=== PATIENT | male | born 1925 | race Caucasian/White ===

== ENCOUNTER → 2016-10-13 | Outpatient (CLI) | payer OTHER, BC ==
[~2016-10-13] MED LIST: ALBU1AER9 INH; ALFU10TA30 PO; APIX1TAB3 PO; CEPH500C2 PO; CYAN10005 PO; DOCU-94 PO; DONE10TA12 PO; DORZ1SOL OPR; DORZ2SOL20 OPR; ENAL10TA88 PO; FRS/40 PO; FURO80TA63 PO; LACT12CR18 TD; LCHC12280 TOP; MISCCAP80 PO; MULT-618 PO; POTA1CAP2 PO; PRLSR20 PO; PROAIR PO; TIMO0.05 OPR; TIMO0.2528 OPR
[2016-10-13 17:33] LABS: BASO % 0.4 %; BASO ABS # 0.02 K/uL (0-0.2); COMPLETE YES; EOS % 1.2 %; HEMATOCRIT 40.6 % (42-52); IG% 0.2 %; LYMPH % 39.2 %; LYMPH ABS # 2.04 K/uL (1.2-3.4); MEAN CELL VOLUME 104.9 fL (80-100); MEAN CORPUSCULAR HEMOGLOBIN 34.9 pg (25-34); MEAN CORPUSCULAR HGB CONC 33.3 g/dl (32-36); MEAN PLATELET VOLUME 11.8 fL (7.4-10.4); MONO % 10.8 %; NEUT % 48.2 %; PLATELET COUNT 122 K/uL (130-400); RED BLOOD COUNT 3.87 M/uL (4.7-6.1)
[2016-10-13 17:42] LABS: BLOOD UREA NITROGEN 29 mg/dl (7-18); CALCIUM 8.5 mg/dl (8.5-10.1); CARBON DIOXIDE 33 mmol/L (21-32); CHLORIDE 98 mmol/L (98-107); GLUCOSE 232 mg/dl (70-99); POTASSIUM 4.7 mmol/L (3.5-5.1); SODIUM 139 mmol/L (136-145)
[2016-10-14 06:28] LABS: ESTIMATED AVERAGE GLUCOSE 140 mg/dl; HA1C FLAG Normal (Normal)
== END | disposition home or self-care (01) ==
LOC: C.LABBFT 12:42
PROVIDERS: ATTEND Internal Medicine Hematology & Oncology
DX: D69.6 Thrombocytopenia, unspecified (principal); R73.01 Impaired fasting glucose

== ENCOUNTER → 2016-11-10 | Outpatient (CLI) | payer OTHER, BC ==
[2016-11-10 18:49] LABS: COMPLETE YES; EOSINOPHIL % 2.7 %; HEMATOCRIT 41.6 % (42-52); LYMPH ABS # 0.33 K/uL (1.2-3.4); LYMPHOCYTE % 6.3 %; MEAN CELL VOLUME 109.2 fL (80-100); MEAN CORPUSCULAR HEMOGLOBIN 34.9 pg (25-34); MEAN PLATELET VOLUME 12.4 fL (7.4-10.4); NEUTROPHILS % 56.1 %; OVALOCYTES 1+; PLATELET COUNT 104 K/uL (130-400); RED BLOOD COUNT 3.81 M/uL (4.7-6.1); VARIANT LYM ABS # 1.52 K/uL; VARIANT LYMPHOCYTE % 28.6 %
== END | disposition home or self-care (01) ==
LOC: C.LABBFT 11:21
PROVIDERS: ATTEND Internal Medicine Hematology & Oncology
DX: D69.6 Thrombocytopenia, unspecified (principal)

== ENCOUNTER 2016-11-17 13:53 | Inpatient (IN) | payer OTHER, BC ==
[~2016-11-17] VITALS: Ht 170.2 cm; Wt 79.0 kg
[~2016-11-17 13:53] MED LIST changes: -ALFU10TA30 PO; -CEPH500C2 PO; -CYAN10005 PO; -DOCU-94 PO; -DONE10TA12 PO; -DORZ2SOL20 OPR; -FRS/40 PO; -FURO80TA63 PO; -LCHC12280 TOP; -POTA1CAP2 PO; -PROAIR PO; -TIMO0.05 OPR
[2016-11-17 13:58] VITALS: TEMP 36.4
[2016-11-17] MEDS ORDERED: DOCU-94 PO (15:53)
[2016-11-17] MEDS ORDERED: DORZ2SOL20 OPR (15:53)
[2016-11-17] MEDS ORDERED: APIX1TAB3 PO (15:53)
[2016-11-17] MEDS ORDERED: PROAIR PO (15:53)
[2016-11-17] MEDS ORDERED: LCHC12280 TOP (15:53)
[2016-11-17] MEDS ORDERED: TIMO0.05 OPR (15:53)
[2016-11-17] MEDS ORDERED: POTA1CAP2 PO (15:53)
[2016-11-17] MEDS ORDERED: CEPH500C2 PO (16:11)
[2016-11-17] MEDS ORDERED: VANCOMYCIN 1GM/270ML NSS IV STA (16:13)
[2016-11-17] MEDS ORDERED: CEFTRIAXONE SOD INJ 1 GM ADDVIAL IV STA (16:13)
--- NOTE | 2016-11-17 16:18 | EMERGENCY ROOM VISIT NOTE ---
History Report prepared by Germania: Marcus Gonzalez Under the Supervision of: Dr. Getachew Davidson M.D. First contact with patient: 15:47 Chief Complaint: SWELLING TO EXTREMITY Stated Complaint: SWOLLEN ANKLE DOCTOR CALLED IN BEFOREHAND History of Present Illness The patient is an 89 year old male who presents to the Emergency Room with complaints of weeping right leg edema that started a couple days ago. Per the patient's , the patient was at [facility] earlier today, and was told to come here. They were concerned of the right leg getting increasingly red. The patient denies any abdominal pain. The patient's legs do swell occasionally however. The patient's notes that the patient had a broken hip , and developed a staph infection. The patient had to go back into the hospital and have it cleaned out. When he came home, he had a lot of leakage then as well. The patient is currently on Cephalexin daily, and he will be on it for the rest of his life. Ever since the hip issue, the patient has followed up with Dr. Epps of infectious disease. He had his Lasix dosage upped yesterday. The patient was on 8 mg every morning, but he was told to up his dose to 40 mg a day for 5 days. He started taking the 40 mg dose yesterday. Source of History: patient, spouse/significant other Onset: A couple days ago Position: leg (right) Quality: other (weeping leg edema) Timing: other (persistent) Associated Symptoms: No abdominal pain Note: Associated symptoms: Worsening right leg redness. No other associated symptoms noted. Review of Systems See HPI for pertinent positives & negatives. A total of 10 systems reviewed and were otherwise negative. Past Medical & Surgical Medical Problems: (1) Acute respiratory failure with hypoxemia (2) Aspiration pneumonia (3) Cellulitis of right lower extremity (4) Disorder Of Thyroid Nos (5) Esophageal Reflux (6) Hypertension Nos Family History Noncontributory due to advanced age Social History Smoking Status: Former Smoker Marital Status: Housing Status: lives with family Occupation Status: retired Current/Historical Medications Scheduled Alfuzosin Hcl (Uroxatral), 10 MG PO DAILYQPM Apixaban (Eliquis), 5 MG PO BID Cephalexin Monohydrate (Keflex), 500 MG PO BID Cyanocobalamin (Vitamin B-12), 1,000 MCG PO QAM Docusate Sodium (Colace), 1 CAP PO BID Donepezil Hydrochloride (Aricept), 10 MG PO QPM Dorzolamide Hcl-Timolol Maleat (Cosopt Oph), 1 DROPS OPR BID Furosemide (Lasix), 80 MG PO QAM Furosemide (Lasix), 40 MG PO QPM Multiple Vitamins W/ Minerals (Centrum Silver Ultra Mens), 1 TAB PO DAILY Omeprazole (Prilosec), 20 MG PO DAILY Potassium Chloride (Potassium Chloride Er), 10 MEQ PO TID Probiotic Product (Probiotic), 1 CAP PO BID Timolol Maleate (Ophth) (Timoptic 0.25% Oph), 1 DROP OPR BID [Proair], 2 PUFF PO QID Scheduled PRN Lactic Acid (Ammonium Lactate Cream 12%), 1 APPLN TOP BID PRN for affected area Allergies Coded Allergies: No Known Allergies (Unverified , 01/03/15) Physical Exam Vital Signs Date Time Temp Pulse Resp B/P Pulse Ox O2 Delivery O2 Flow Rate FiO2 11/17/16 20:07 50 21 89/60 96 Nasal Cannula 3.0 11/17/16 18:35 51 18 88/49 97 Nasal Cannula 3.0 11/17/16 18:20 52 11/17/16 17:44 52 20 107/54 94 Nasal Cannula 3.0 11/17/16 16:25 84 Room Air 11/17/16 16:25 97 Nasal Cannula 4.0 11/17/16 16:09 51 26 97 Nasal Cannula 4.0 11/17/16 16:00 55 28 106/72 84 Room Air 11/17/16 13:58 36.4 82 16 116/70 94 Room Air Physical Exam GENERAL: Patient is a healthy-appearing well-nourished HEAD: Normocephalic atraumatic EYES: Ocular movements intact pupils equal and react to light OROPHARYNX mucous membranes are moist no exudates present no erythema or edema present NECK: Supple no nuchal rigidity CHEST: Good equal expansion LUNGS: Clear and equal to auscultation CARDIAC: Normal S1 and S2 ABDOMEN: Soft nontender no guarding BACK: No CVA tenderness EXTREMITIES: Quarter sized weeping ulcer to posterior tibial area. NEURO: Patient is following commands is answering questions appropriately. Alert and oriented x3 Cranial Nerves 2-12 grossly intact Medical Decision & Procedures ER Provider Diagnostic Interpretation: Radiology results as stated below per my review and radiologist interpretation: ULTRASOUND VENOUS DOPPLER ULTRASOUND OF THE RIGHT LOWER EXTREMITY CLINICAL HISTORY: Right leg swelling COMPARISON STUDY: No previous studies for comparison. FINDINGS: Real-time and color flow Doppler imaging were performed. Flow was seen within the femoral, popliteal and calf veins with no intraluminal thrombus demonstrated. The saphenous vein is patent. There is right calf edema which limits evaluation the calf vessels. IMPRESSION: No evidence of right lower extremity DVT. Electronically signed by: Vasquez Owen M.D. 11/17/2016 5:44 PM Dictated Date/Time: 11/17/2016 5:43 PM CHEST ONE VIEW PORTABLE CLINICAL HISTORY: Atypical chest pain COMPARISON STUDY: 08/30/2016 FINDINGS: The heart is mildly enlarged. There is mild prominence of central pulmonary vasculature without evidence of overt failure. There are no pleural effusions. There is no lobar consolidation.[ IMPRESSION: Cardiomegaly. Mild central vascular prominence without evidence of overt failure. No evidence of focal pulmonary consolidation Electronically signed by: Vasquez Owen M.D. 11/17/2016 4:32 PM Dictated Date/Time: 11/17/2016 4:31 PM Laboratory Results 11/17/16 16:27 Red Blood Count 3.83, Mean Corpuscular Volume 108.6, Mean Corpuscular Hemoglobin 35.5, Mean Corpuscular Hemoglobin Concent 32.7, Mean Platelet Volume 11.9, Neutrophils (%) (Auto) 47.8, Lymphocytes (%) (Auto) 37.0, Monocytes (%) ( Auto) 13.5, Eosinophils (%) (Auto) 1.1, Basophils (%) (Auto) 0.2, Neutrophils # (Auto) 2.62, Lymphocytes # (Auto) 2.03, Monocytes # (Auto) 0.74, Eosinophils # ( Auto) 0.06, Basophils # (Auto) 0.01 11/17/16 16:27 Test 11/17/16 16:27 White Blood Count 5.48 K/uL (4.8-10.8) Red Blood Count 3.83 M/uL (4.7-6.1) Hemoglobin 13.6 g/dL (14.0-18.0) Hematocrit 41.6 % (42-52) Mean Corpuscular Volume 108.6 fL (80-100) Mean Corpuscular Hemoglobin 35.5 pg (25-34) Mean Corpuscular Hemoglobin Concent 32.7 g/dl (32-36) Platelet Count 90 K/uL (130-400) Mean Platelet Volume 11.9 fL (7.4-10.4) Neutrophils (%) (Auto) 47.8 % Lymphocytes (%) (Auto) 37.0 % Monocytes (%) (Auto) 13.5 % Eosinophils (%) (Auto) 1.1 % Basophils (%) (Auto) 0.2 % Neutrophils # (Auto) 2.62 K/uL (1.4-6.5) Lymphocytes # (Auto) 2.03 K/uL (1.2-3.4) Monocytes # (Auto) 0.74 K/uL (0.11-0.59) Eosinophils # (Auto) 0.06 K/uL (0-0.5) Basophils # (Auto) 0.01 K/uL (0-0.2) RDW Standard Deviation 52.5 fL (36.4-46.3) RDW Coefficient of Variation 13.3 % (11.5-14.5) Immature Granulocyte % (Auto) 0.4 % Immature Granulocyte # (Auto) 0.02 K/uL (0.00-0.02) Anion Gap 6.0 mmol/L (3-11) Est Creatinine Clear Calc Drug Dose 36.0 ml/min Estimated GFR () 56.1 Estimated GFR (Non- 48.4 BUN/Creatinine Ratio 28.3 (10-20) Calcium Level 8.8 mg/dl (8.5-10.1) Total Bilirubin 1.4 mg/dl (0.2-1) Direct Bilirubin 0.5 mg/dl (0-0.2) Aspartate Amino Transf (AST/SGOT) 25 U/L (15-37) Alanine Aminotransferase (ALT/SGPT) 19 U/L (12-78) Alkaline Phosphatase 89 U/L (45-117) Total Creatine Kinase 123 U/L (39-308) Creatine Kinase MB 2.5 ng/ml (0.5-3.6) Creatine Kinase MB Ratio 2.0 (0-3.0) Troponin I < 0.015 ng/ml (0-0.045) Pro-B-Type Natriuretic Peptide 3697 pg/ml (0-1800) Total Protein 7.0 gm/dl (6.4-8.2) Albumin 3.2 gm/dl (3.4-5.0) Lipase 82 U/L (73-393) Labs reviewed by ED physician. Medications Administered Medications (Trade) Dose Ordered Sig/Herbert Route Start Time Stop Time Status Last Admin Dose Admin Ceftriaxone Sodium (Rocephin Inj) 1 gm NOW STAT IV 11/17/16 16:13 11/17/16 16:14 DC 11/17/16 16:59 1 GM Vancomycin HCl (Vancomycin 1gm/ 270ml Nss) 1 gm NOW STAT IV 11/17/16 16:13 11/17/16 16:14 DC 11/17/16 17:43 1 GM ECG Indication: other (swelling to extremity) Rate (beats per minute): 57 Rhythm: atrial fibrillation Findings: no acute ischemic change, no ectopy ED Course 1554: Past medical records reviewed. The patient was evaluated in room B7. A complete history and physical examination was performed. 1613: Ordered Vancomycin 1 gm/270 ml NSS 1 gm IV, Rocephin Inj 1 gm IV. 1840: Upon reexamination the patient is resting comfortably. I discussed results and treatment plan with the patient. He verbalizes agreement and understanding. The patient will be evaluated for further management. 1899: I discussed the patient with Dr. Ludmila jurado - he will evaluate the patient for further treatment. Medical Decision Differential diagnosis: Etiologies such as cellulitis, abscess, MRSA infection, DVT, necrotizing fasciitis, dermatitis, drug eruption, as well as others were entertained. This is an 89-year-old male who presents emergency department complaining of weeping wound as well as right lower extremity cellulitis. The patient was sent in by his primary care physician's office and the patient is Jules on Keflex at home however the cellulitis became much worse today. Ultrasound does not show any evidence of a DVT. He has a normal CBC. Based on the findings I did discuss the case with the hospitalist service who agreed to admit the patient. Patient was in agreement with the treatment plan. Consults Time Called: 1839 Consulting Physician: Dr. Ludmila TANG hospitalist Returned Call: [phone] I discussed the patient with Dr. Ludmila TANG hospitalist - he will evaluate the patient for further treatment. Impression Primary Impression: Cellulitis of right lower extremity Scribe Attestation The scribe's documentation has been prepared under my direction and personally reviewed by me in its entirety. I confirm that the note above accurately reflects all work, treatment, procedures, and medical decision making performed by me. Departure Information Dispostion Being Evaluated By Hospitalist Referrals Joshua Rojas M.D. (PCP) Patient Instructions My [facility]
--- NOTE | 2016-11-17 16:33 | DIAGNOSTIC IMAGING REPORT ---
CHEST ONE VIEW PORTABLE CLINICAL HISTORY: Atypical chest pain COMPARISON STUDY: 08/30/2016 FINDINGS: The heart is mildly enlarged. There is mild prominence of central pulmonary vasculature without evidence of overt failure. There are no pleural effusions. There is no lobar consolidation.[ IMPRESSION: Cardiomegaly. Mild central vascular prominence without evidence of overt failure. No evidence of focal pulmonary consolidation Electronically signed by: Vasquez Owen M.D. 11/17/2016 4:32 PM Dictated Date/Time: 11/17/2016 4:31 PM
[2016-11-17 16:48] LABS: HEMATOCRIT 41.6 % (42-52); MEAN CELL VOLUME 108.6 fL (80-100); MEAN CORPUSCULAR HEMOGLOBIN 35.5 pg (25-34); MEAN CORPUSCULAR HGB CONC 32.7 g/dl (32-36); RED BLOOD COUNT 3.83 M/uL (4.7-6.1); WHITE BLOOD COUNT 5.48 K/uL (4.8-10.8)
[2016-11-17 16:49] LABS: BASO % 0.2 %; BASO ABS # 0.01 K/uL (0-0.2); COMPLETE YES; EOS % 1.1 %; IG% 0.4 %; LYMPH ABS # 2.03 K/uL (1.2-3.4); MEAN PLATELET VOLUME 11.9 fL (7.4-10.4); MONO % 13.5 %; NEUT % 47.8 %; PLATELET COUNT 90 K/uL (130-400)
[2016-11-17 17:08] LABS: ALT/SGPT 19 U/L (12-78); AST/SGOT 25 U/L (15-37); BLOOD UREA NITROGEN 37 mg/dl (7-18); BUN/CREATININE RATIO 28.3 (10-20); CALCIUM 8.8 mg/dl (8.5-10.1); CARBON DIOXIDE 37 mmol/L (21-32); CHLORIDE 97 mmol/L (98-107); GLUCOSE 128 mg/dl (70-99); POTASSIUM 4.7 mmol/L (3.5-5.1); SODIUM 140 mmol/L (136-145)
[2016-11-17 17:16] LABS: ALKALINE PHOSPHATASE 89 U/L (45-117)
--- NOTE | 2016-11-17 17:45 | DIAGNOSTIC IMAGING REPORT ---
ULTRASOUND VENOUS DOPPLER ULTRASOUND OF THE RIGHT LOWER EXTREMITY CLINICAL HISTORY: Right leg swelling COMPARISON STUDY: No previous studies for comparison. FINDINGS: Real-time and color flow Doppler imaging were performed. Flow was seen within the femoral, popliteal and calf veins with no intraluminal thrombus demonstrated. The saphenous vein is patent. There is right calf edema which limits evaluation the calf vessels. IMPRESSION: No evidence of right lower extremity DVT. Electronically signed by: Vasquez Owen M.D. 11/17/2016 5:44 PM Dictated Date/Time: 11/17/2016 5:43 PM
[2016-11-17] MEDS ORDERED: ACETAMINOPHEN 325 MG TAB PO PRN (19:45)
[2016-11-17] MEDS ORDERED: ENOXAPARIN 40 MG/0.4 ML SYR SQ SCH (19:45)
[2016-11-17] MEDS ORDERED: POLYETHYLENE (MIRALAX) 17 GM PACK PO PRN (19:45)
[2016-11-17] MEDS ORDERED: MAGNESIUM HYDROXIDE SUSP 30 ML UDC PO PRN (19:45)
[2016-11-17] MEDS ORDERED: ALUMINUM/MAGNESIUM/SIMETH (MAALOX MAX) 30 ML UDC PO PRN (19:45)
[2016-11-17] MEDS ORDERED: ONDANSETRON INJ 2 MG/ML 2 ML VIAL IV PRN (19:45)
--- NOTE | 2016-11-17 19:54 | History and Physical ---
History & Physical Date & Time of Service: Nov 17, 2016 at 19:53 Chief Complaint: Swollen Ankle Doctor Called In Beforehand Primary Care Physician: Joshua Rojas M.D. 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 Epps (Infectious Disease) on lifelong Cephalexin 500 mg twice a day. 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 History is per due to baseline dementia. Per patient's , 2 days ago, noticed increased right lower extremity swelling. PCP was contacted and increased lasix from 80mg per day to 120mg per day for 5 days. By Monday afternoon, RLE became progressively more red and began weeping. Patient was then taken to [facility] where it was recommended going to ED to rule out DVT. According to , patient had been taking cephalexin as prescribed. no fevers, chills, no calf pain, no n/v, abdominal pain, change in stool, urinary symptoms, In the ED, patient was stable with normal WCC, negative Lower extremity Doppler U/S Past Medical/Surgical History Chronic diastolic CHF Alzheimer's Disease/GERD HTN Afib BPH GERD Family History Noncontributory due to advanced age Social History Smoking Status: Former Smoker Marital Status: Housing status: lives with family Occupational Status: retired Immunizations History of Influenza Vaccine: Yes History of Tetanus Vaccine?: Unknown History of Pneumococcal: Yes Pneumococcal Date: May 28, 2010 History of Hepatitis B Vaccine: Unknown Allergies Coded Allergies: No Known Allergies (Unverified , 01/03/15) Home Medications Scheduled Alfuzosin Hcl (Uroxatral), 10 MG PO DAILYQPM Apixaban (Eliquis), 5 MG PO BID Cephalexin Monohydrate (Keflex), 500 MG PO BID Cyanocobalamin (Vitamin B-12), 1,000 MCG PO QAM Docusate Sodium (Colace), 1 CAP PO BID Donepezil Hydrochloride (Aricept), 10 MG PO QPM Dorzolamide Hcl-Timolol Maleat (Cosopt Oph), 1 DROPS OPR BID Furosemide (Lasix), 80 MG PO QAM Furosemide (Lasix), 40 MG PO QPM Multiple Vitamins W/ Minerals (Centrum Silver Ultra Mens), 1 TAB PO DAILY Omeprazole (Prilosec), 20 MG PO DAILY Potassium Chloride (Potassium Chloride Er), 10 MEQ PO TID Probiotic Product (Probiotic), 1 CAP PO BID Timolol Maleate (Ophth) (Timoptic 0.25% Oph), 1 DROP OPR BID [Proair], 2 PUFF PO QID Scheduled PRN Lactic Acid (Ammonium Lactate Cream 12%), 1 APPLN TOP BID PRN for affected area Review of Systems Constitutional: No chills, No fatigue, No fever Respiratory: No cough, No shortness of breath, No wheezing Cardiovascular: + edema, No chest pain, No palpitations Abdomen: No diarrhea, No nausea, No pain, No vomiting Genitourinary - Male: No dysuria, No hematuria, No urinary frequency, No urinary urgency Integumentary: + problem reported (RLE redness, swelling) Physical Exam Vital Signs Date Time Temp Pulse Resp B/P Pulse Ox O2 Delivery O2 Flow Rate FiO2 11/17/16 18:35 51 18 88/49 97 Nasal Cannula 3.0 11/17/16 18:20 52 11/17/16 17:44 52 20 107/54 94 Nasal Cannula 3.0 11/17/16 16:25 84 Room Air 11/17/16 16:25 97 Nasal Cannula 4.0 11/17/16 16:09 51 26 97 Nasal Cannula 4.0 11/17/16 16:00 55 28 106/72 84 Room Air 11/17/16 13:58 36.4 82 16 116/70 94 Room Air General Appearance: WD/WN, no apparent distress Head: normocephalic, atraumatic Eyes: PERRL, EOMI, sclerae normal Neck: supple, no carotid bruits, trachea midline Respiratory/Chest: lungs clear, normal breath sounds, no respiratory distress Cardiovascular: regular rate, rhythm, no JVD, no murmur, + pertinent finding (2 + pittingedema nata) Abdomen/GI: normal bowel sounds, non tender, soft Extremities/Musculoskelatal: no calf tenderness, + pedal edema, + swelling, + pertinent finding (RLE erythema, RLE 1.5 cm ulcer) Neurologic/Psych: alert, normal mood/affect, + pertinent finding (oriented to person, place ONLY) Diagnostics Laboratory Results Results Past 24 Hours Test 11/17/16 16:27 Range/Units White Blood Count 5.48 4.8-10.8 K/uL Red Blood Count 3.83 4.7-6.1 M/uL Hemoglobin 13.6 14.0-18.0 g/dL Hematocrit 41.6 42-52 % Mean Corpuscular Volume 108.6 80-100 fL Mean Corpuscular Hemoglobin 35.5 25-34 pg Mean Corpuscular Hemoglobin Concent 32.7 32-36 g/dl Platelet Count 90 130-400 K/uL Mean Platelet Volume 11.9 7.4-10.4 fL Neutrophils (%) (Auto) 47.8 % Lymphocytes (%) (Auto) 37.0 % Monocytes (%) (Auto) 13.5 % Eosinophils (%) (Auto) 1.1 % Basophils (%) (Auto) 0.2 % Neutrophils # (Auto) 2.62 1.4-6.5 K/uL Lymphocytes # (Auto) 2.03 1.2-3.4 K/uL Monocytes # (Auto) 0.74 0.11-0.59 K/uL Eosinophils # (Auto) 0.06 0-0.5 K/uL Basophils # (Auto) 0.01 0-0.2 K/uL RDW Standard Deviation 52.5 36.4-46.3 fL RDW Coefficient of Variation 13.3 11.5-14.5 % Immature Granulocyte % (Auto) 0.4 % Immature Granulocyte # (Auto) 0.02 0.00-0.02 K/uL Sodium Level 140 136-145 mmol/L Potassium Level 4.7 3.5-5.1 mmol/L Chloride Level 97 98-107 mmol/L Carbon Dioxide Level 37 21-32 mmol/L Anion Gap 6.0 3-11 mmol/L Blood Urea Nitrogen 37 7-18 mg/dl Creatinine 1.30 0.60-1.40 mg/dl Est Creatinine Clear Calc Drug Dose 36.0 ml/min Estimated GFR () 56.1 Estimated GFR (Non- 48.4 BUN/Creatinine Ratio 28.3 10-20 Random Glucose 128 70-99 mg/dl Calcium Level 8.8 8.5-10.1 mg/dl Total Bilirubin 1.4 0.2-1 mg/dl Direct Bilirubin 0.5 0-0.2 mg/dl Aspartate Amino Transf (AST/SGOT) 25 15-37 U/L Alanine Aminotransferase (ALT/SGPT) 19 12-78 U/L Alkaline Phosphatase 89 45-117 U/L Total Creatine Kinase 123 39-308 U/L Creatine Kinase MB 2.5 0.5-3.6 ng/ml Creatine Kinase MB Ratio 2.0 0-3.0 Troponin I < 0.015 0-0.045 ng/ml Pro-B-Type Natriuretic Peptide 3697 0-1800 pg/ml Total Protein 7.0 6.4-8.2 gm/dl Albumin 3.2 3.4-5.0 gm/dl Lipase 82 73-393 U/L Microbiology Results 11/17/16 Blood Culture, Received Pending 11/17/16 Blood Culture, Received Pending Diagnostic Radiology CHEST ONE VIEW PORTABLE CLINICAL HISTORY: Atypical chest pain COMPARISON STUDY: 08/30/2016 FINDINGS: The heart is mildly enlarged. There is mild prominence of central pulmonary vasculature without evidence of overt failure. There are no pleural effusions. There is no lobar consolidation.[ IMPRESSION: Cardiomegaly. Mild central vascular prominence without evidence of overt failure. No evidence of focal pulmonary consolidation ULTRASOUND VENOUS DOPPLER ULTRASOUND OF THE RIGHT LOWER EXTREMITY CLINICAL HISTORY: Right leg swelling COMPARISON STUDY: No previous studies for comparison. FINDINGS: Real-time and color flow Doppler imaging were performed. Flow was seen within the femoral, popliteal and calf veins with no intraluminal thrombus demonstrated. The saphenous vein is patent. There is right calf edema which limits evaluation the calf vessels. IMPRESSION: No evidence of right lower extremity DVT. 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, on lifelong Cephalexin 500 mg twice a day and hx of Chronic Diastolic CHF complicated by Nata LE Edema on lasix, p/w progressive RLE erythema/edema, currently afebrile, stable, normal WCC, negative LE doppler U/S RLE erythema -edematous, erythematous, warm to touch -RLE Cellulitis refractory to Cephalexin at home -MSSA isolated in a previous admission, no hx of MRSA -Kelfex 500 mg BID at home lifelong for hx of infected rt hip prosthesis -Keflex held -Start Vancomycin, Clindamycin -Start Probiotic -F/u Blood cx's Chronic Diastolic CHF, Nata LE Edema -LAst Echo 12/2014: -LV Sys fxn ; EF 60-65%, mild aortic regurg, mod, to severe mitral regurg -CXR 11/17/16: Cardiomegaly. Mild central vascular prominence without evidence ofovert failure. -Pro-BNP BNP 3697 -Restart home dose Lasix, 40 Qpm, 80 Qam -Continue to monitor Afib restart Eliquis GERD -Restart Omeprazole Alzheimer's Disease -restart Donepezil BPH -Restart Uroxatral DVT prophylaxis: already on Eliquis Resident Physician Supervision Note: Pt seen examined independently. Discussed w/family, discussed the case with the resident and agree with the findings and plan as documented in the note. Any exceptions or clarifications are listed here 89 y/o M who suffers from dementia and CHF - on life-long antibiotics following a prosthetic hip infection. Pt brought in by family due to RLE cellulitis - could not contribute to HPI and had no specific complaints OE AAO x 1 S1,2 irreg CTA - poor effort Ext - extensive cellulitis and edema - above R ankle to below knee P: Started on Vanc and Clinda Cont Lasix for edema - local wound care Pt is on Eliquis for AF Documented By: Cornel Keys Chronic diastolic CHF Alzheimer's Disease/GERD HTN Afib BPH GERD Level of Care Med/Surg Resuscitation Status DO NOT RESUSCITATE VTE Prophylaxis VTE Risk Assessment Done? Y/N: Yes Risk Level: Moderate Given or contraindicated: Enoxaparin (Lovenox)SQ Social Service Consult None Apply Resident Tracking Resident Involvement: Resident Care Provided Care Provided: Adult Hospital Medicine
[2016-11-17] MEDS ORDERED: VANCOMYCIN CONSULT ACTIVE PRN (20:00)
[2016-11-17] MEDS ORDERED: VANCOMYCIN INJ 1,000 MG in SODIUM CHLORIDE 0.9% 250ML 250 ML IV SCH (20:00)
[2016-11-17 20:11] VITALS: O2SAT 96; Ht 170.2 cm; Wt 79.0 kg
[2016-11-17 20:18] LABS: INR 1.1 (0.9-1.1); PARTIAL THROMBOPLASTIN RATIO 1.3; PROTHROMBIN TIME (PATIENT) 11.8 SECONDS (9.0-12.0)
[2016-11-17] MEDS ORDERED: APIXABAN 2.5 MG TAB PO SCH (21:00)
[2016-11-17] MEDS ORDERED: DONEPEZIL HCL 10 MG TAB PO SCH (21:00)
[2016-11-17] MEDS ORDERED: DORZOLAMIDE/TIMOLOL 22.3/6.8MG/ML 10 ML BTL OPR SCH (21:00)
[2016-11-17] MEDS ORDERED: FUROSEMIDE 40 MG TAB PO SCH (21:00)
[2016-11-17] MEDS ORDERED: LACTOBACILLUS ACIDOPHILUS (FLORANEX) TAB PO SCH (21:00)
[2016-11-17] MEDS ORDERED: ALFU10TA30 PO (21:21)
[2016-11-17] MEDS ORDERED: DONE10TA12 PO (21:23)
[2016-11-17] MEDS ORDERED: FURO80TA63 PO (21:28)
[2016-11-17] MEDS ORDERED: FRS/40 PO (21:30)
[2016-11-17] MEDS ORDERED: CYAN10005 PO (21:33)
[2016-11-17] MEDS ORDERED: CLINDAMYCIN IV 600 MG in DEXTROSE 5% ADD-VANTAGE 50ML 50 ML IV SCH (23:00)
[2016-11-17 23:01] VITALS: BP 100/68; PULSE 49; O2SAT 98
[2016-11-18] VITALS: O2SAT 98
--- NOTE | 2016-11-18 02:41 | Death Pronouncement Note ---
Pronouncement Note Date & Time of Nov 18, 2016. 2:10am Pronouncement At time of pronouncement the patients pupils were fixed and dilated, there was no spontaneous respiratory effort, no palpable pulse, no audible heart tones, and no response to pain or voice.
--- NOTE | 2016-11-18 02:57 | Progress Note ---
Progress Note Date of Service Nov 18, 2016. Progress Note Please refer to nursing staff notes for events leading up to code purple. Code lauren called at 2:08am 11/18/16. Patient was elevated in bed with oxygen mask on, appeared obtunded. A: one agonal breath when I first entered the room but otherwise not breathing effort B: as above C: no radial or carotid pulse felt, patient placed on monitor and determined to have pulseless electrical activity. He is not for resuscitation therefore no efforts were started in this regard. Time of called at 2:10am. Resident Tracking Resident Involvement: Resident Care Provided Care Provided: Adult Hospital Medicine
[2016-11-18] MEDS ORDERED: FUROSEMIDE 80 MG TAB PO SCH (08:00)
[2016-11-18] MEDS ORDERED: ALFUZosin TAB 10 MG TAB PO SCH (08:00)
--- NOTE | 2016-11-18 08:10 | Death Summary ---
Summary of Admission Date Nov 17, 2016 at 19:53 Date & Time of Nov 18, 2016. 2:10am Cause of Hypoxia secondary to aspiration Secondary Diagnoses Altered mental status Cellulitis Chronic diastolic heart failure Hospital Course Mr Guo was admitted with increasing leg swelling and cellulitis. He was called as a code purple after oxygen saturations acutely dropped. When I arrived he had one agonal breath and then no respiratory effort. No carotid pulse or heart sounds were present and he had pulseless electrical activity on the monitor. He was not for resuscitation to no efforts were made in this regard. He was pronounced at 2:10am on November 18 2016. Copy To Joshua Rojas M.D. Resident Tracking Resident Involvement: Resident Care Provided Care Provided: Adult Hospital Medicine
[2016-11-18] MEDS ORDERED: VANCOMYCIN INJ 1,200 MG in SODIUM CHLORIDE 0.9% 250ML 250 ML IV SCH (20:00)
[2016-11-20] MEDS ORDERED: VANCOMYCIN TROUGH SCH (19:30)
== END 2016-11-18 02:10 | disposition expired | DRG 178 ==
LOC: ENRESERVTM → ENRESERVDT → C.EDB 13:55 → C.4E 19:53
PROVIDERS: ADMIT Internal Medicine; ATTEND Internal Medicine
DX: J69.0 Pneumonitis due to inhalation of food and vomit (principal); I50.32 Chronic diastolic (congestive) heart failure; L03.115 Cellulitis of right lower limb; R09.02 Hypoxemia; G30.9 Alzheimer's disease, unspecified; F02.80 Dementia in other diseases classified elsewhere, unspecified severity, without behavioral disturbance, psychotic disturbance, mood disturbance, and anxiety; K21.9 Gastro-esophageal reflux disease without esophagitis; I48.91 Unspecified atrial fibrillation; I10 Essential (primary) hypertension; N40.0 Benign prostatic hyperplasia without lower urinary tract symptoms; Z87.891 Personal history of nicotine dependence; Z79.01 Long term (current) use of anticoagulants; Z79.899 Other long term (current) drug therapy; I08.0 Rheumatic disorders of both mitral and aortic valves; Z66 Do not resuscitate; Z96.641 Presence of right artificial hip joint